=== PATIENT | male | born 1985 | race Caucasian/White ===

== ENCOUNTER 2017-02-07 15:36 | Emergency (ER) | payer MEDICAID ==
[~2017-02-07] VITALS: Ht 177.8 cm; Wt 81.6 kg
[~2017-02-07 15:36] MED LIST: MORP15TA PO; TAMS-11 PO
[2017-02-07 15:54] VITALS: BP_SYST 157
[2017-02-07 16:15] VITALS: BP_SYST 157
== END 2017-02-07 16:15 | disposition home or self-care (01) ==
LOC: SED 15:36
DX: S50.362A Insect bite (nonvenomous) of left elbow, initial encounter (principal); S50.361A Insect bite (nonvenomous) of right elbow, initial encounter; Z87.442 Personal history of urinary calculi; L98.9 Disorder of the skin and subcutaneous tissue, unspecified; W57.XXXA Bitten or stung by nonvenomous insect and other nonvenomous arthropods, initial encounter; Y93.89 Activity, other specified; Y92.89 Other specified places as the place of occurrence of the external cause; Y99.8 Other external cause status
CPT/HCPCS: 99283